=== PATIENT | male | born 1970 | race Caucasian/White ===

== ENCOUNTER 2017-01-06 06:15 | Emergency (ER) | payer OTHER, SELFPAY ==
[~2017-01-06] VITALS: Ht 172.7 cm; Wt 69.0 kg
[2017-01-06 06:24] VITALS: BP 145/98
== END 2017-01-06 09:18 | disposition home or self-care (01) ==
LOC: ED 09:12
DX: N50.82 Scrotal pain (principal); Z59.0 Homelessness; Z88.0 Allergy status to penicillin
CPT/HCPCS: 76870; 81003; 87491; 87591; 99285